=== PATIENT | male | born 1980 | race Caucasian/White ===

== ENCOUNTER 2017-03-18 19:11 | Emergency (ER) | payer BC, OTHER ==
[2017-03-18 19:17] VITALS: BP 139/94; PULSE 92; RESP 18; O2SAT 97
[2017-03-18 19:19] VITALS: TEMP 99
[2017-03-18] MEDS ORDERED: AZITHROMYCIN 250 MG TAB PO ONE ×2 (19:51→19:52)
[2017-03-18] MEDS ORDERED: DEXAMETHASONE 4 MG TAB PO ONE (19:52)
[2017-03-18] MEDS ORDERED: DEXAMETHASONE 4 MG TAB ONE (19:53)
--- NOTE | 2017-03-18 19:55 | EDPHY ---
H & P Stated Complaint: prod cough x2w, no SOB Source: Patient Exam Limitations: No limitations - Personal History Current Tetanus/Diphtheria Vaccine: No Current Tetanus Diphtheria and Acellular Pertussis (TDAP): No - Medical/Surgical History Hx Asthma: No Hx Chronic Respiratory Disease: No Hx Diabetes: No Hx Cardiac Disease: No Hx Renal Disease: No Hx Cirrhosis: No Hx Alcoholism: No Hx HIV/AIDS: No Hx Splenectomy or Spleen Trauma: No Other PMH: denies - Social History Smoking Status: Never smoked HPI/ROS: CHIEF COMPLAINT: Cough HISTORY OF PRESENT ILLNESS: Patient complains of cough for the past 2 weeks. This was gradual onset. Constant duration. No improvement over the 2 week period. He has been taking cnvi-zyh-[id number] medications including ibuprofen, Robitussin DM and Mucinex. No improvement. No chest pain of any kind at any point. No fever. The cough has been mostly productive occasionally dry. No shortness of breath. No lower extremity erythema edema or pain. No fever. No evaluation for this. He is a nonsmoker. Nondiabetic. No recent travel or surgery. No other associated complaints or modifying factors. REVIEW OF SYSTEMS: Ten systems reviewed and are negative unless otherwise noted in the HPI PAST MEDICAL HISTORY: Peptic ulcer status post EGD SOCIAL HISTORY: Nonsmoker FAMILY HISTORY: Noncontributory EXAMINATION General Appearance: Alert, no distress Head: normocephalic, atraumatic Eyes: Pupils equal and round, no conjunctival pallor or injection ENT, Mouth: Mucous membranes moist Neck: Normal inspection, supple, non-tender Respiratory: Lungs are clear to auscultation. No wheezing, rhonchi or crackles. Cardiovascular: Regular rate and rhythm. No murmur. Pulses intact distally. Gastrointestinal: Abdomen is soft and nontender Back: non-tender, no bony abnormalities Neurological: A&O, nonfocal, normal gait Skin: Warm and dry, no rash Extremities: Nontender, no pedal edema Psychiatric: Mood and affect normal DIFFERENTIAL DIAGNOSES: Including but not limited to bronchitis, pneumonia, lower respiratory infection , upper respiratory infection, pneumonitis, influenza, viral illness MDM: 7:52 p.m. Acute bronchitis over the last 2 weeks. Vital signs were well within normal limits. I do not appreciate pneumonia by auscultation. He is in no acute distress and does not appear to be acutely ill. I did offer a chest x-ray and he has declined. I do not feel that this is entirely necessary at this time as I would like to treat him empirically with Decadron here and Zithromax. Additionally I will provide prescription for cough medicine. He is to continue his [id number] Mucinex and anti-inflammatories. He is to follow up with primary care physician early next week or return here for any worsening symptoms in the interim, or any development of chest pain. He is comfortable with this plan and discharged home stable condition. SUPERVISION: This patient was independently evaluated without direct examination by the attending physician. Case was discussed with attending physician. (Yovani Fajardo ) Constitutional: Initial Vital Signs Temperature (C) 99.0 F 03/18/17 19:11 Heart Rate 92 03/18/17 19:11 Respiratory Rate 18 03/18/17 19:11 Blood Pressure 139/94 H 03/18/17 19:11 O2 Sat (%) 97 03/18/17 19:11 O2 Delivery Mode Room Air Allergies/Adverse Reactions: No Known Allergies Allergy (Unverified 03/18/17 19:17) Home Medications: Medication Instructions Recorded Acetaminophen/Codeine 300/30Mg 1 each PO Q6 PRN #15 tab 03/18/17 [Tylenol #3 (*)] Azithromycin [Zithromax] 250 mg PO DAILY #4 tab 03/18/17 Benzonatate [Tessalon Pearles (RX)] 100 mg PO Q8 PRN #15 cap 03/18/17 Medical Decision Making Other Provider: The patient was evaluated and managed by the Physician [employer]or/ Nurse Practitioner. My co-signature indicates that I have reviewed this chart and I agree with the findings and plan of care as documented. I am the secondary supervising physician. (Kitty Angulo) - Data Points Medications Given: Discontinued Medications Azithromycin (Zithromax) 500 mg PO EDNOW ONE PRN Reason: Protocol Stop: 03/18/17 19:53 Last Admin: 03/18/17 19:56 Dose: 500 mg Dexamethasone (Decadron) 8 mg PO EDNOW ONE Stop: 03/18/17 19:53 Last Admin: 03/18/17 19:56 Dose: 8 mg Departure - Departure Disposition: Home, Routine, Self-Care Clinical Impression: Cough Acute bronchitis Qualifiers: Bronchitis organism: unspecified organism Qualified Code(s): J20.9 - Acute bronchitis, unspecified Condition: Good Instructions: Acute Bronchitis (ED), Community Acquired Pneumonia (ED) Additional Instructions: 1. Zithromax once daily as prescribed for the next 4 days starting tomorrow, March 19 2. Continue anti-inflammatories [id number]-[id number] as needed for 5 days and stop 3. Follow up with primary care physician for further care 4. Anti tussive as prescribed as needed 5. Return here for any worsening symptoms, chest pain, persistent fever or difficulty breathing Referrals: MALATHI,LEANDRO [Other] - As per Instructions Prescriptions: Acetaminophen/Codeine 300/30Mg [Tylenol #3 (*)] 1 each PO Q6 PRN #15 tab PRN Reason: Pain, Mild Azithromycin [Zithromax] 250 mg PO DAILY #4 tab Benzonatate [Tessalon Pearles (RX)] 100 mg PO Q8 PRN #15 cap PRN Reason: Cough, Mild
== END 2017-03-18 20:06 | disposition home or self-care (01) ==
DX: J20.9 Acute bronchitis, unspecified (principal)